=== PATIENT | female | born 1980 | race Caucasian/White ===

== ENCOUNTER 2019-05-16 20:26 | Observation (INO) ==
[2019-05-16] MEDS ORDERED: *HR* Metoprolol 5 MG/5 ML VIAL IVP ONE (21:17)
[2019-05-16 22:07] LABS: Basophils # 0.1 K/mcL (0.0-0.2); Basophils % 0.6 %; Eosinophils # 0.1 K/mcL (0.0-0.6); Hematocrit 43.9 % (35.3-44.9); Hemoglobin 15.8 g/dL (11.5-15.4); Immature Granulocytes % 0.2 % (0-4); Lymphocytes # 3.3 K/mcL (0.6-4.6); Lymphocytes % 27.7 %; Mean Corpuscular Hemoglobin 31.7 pg (28.0-33.3); Mean Corpuscular Volume 88.2 fL (83.0-100.0); Monocytes % 8.5 %; Neutrophils # 7.5 K/mcL (1.6-8.9); Platelet Count 365 K/mcL (140-400); Red Blood Count 4.98 M/mcL (3.82-4.97); Red Cell Distribution Width 12.7 % (11.5-14.5); White Blood Count 12.1 K/mcL (4.3-11.1)
[2019-05-16 22:33] LABS: BUN/Creatinine Ratio 17 (6-26); Blood Urea Nitrogen 12 mg/dL (6-20); Calcium 9.1 mg/dL (8.6-10.3); Carbon Dioxide 25 mEq/L (23-29); Chloride 102 mEq/L (98-107); Glucose 118 mg/dL (70-105); Osmolality,Calculated 289 (280-300); Potassium 3.7 mEq/L (3.5-5.1); Sodium 139 mEq/L (136-145); Troponin I 0.06 ng/mL (< 0.04); eGFR For African Americans > 60 (> 60); eGFR For Non-African Americans > 60 (> 60)
[2019-05-16] MEDS ORDERED: Aspirin 325 MG TABLET PO ONE (22:39)
[2019-05-16] MEDS ORDERED: Ondansetron 4 MG/2 ML VIAL IVP ONE (22:39)
[2019-05-16] MEDS ORDERED: hydrALAZINE 10 MG TABLET PO ONE (23:27)
[2019-05-16] MEDS ORDERED: niCARdipine 20 MG in 0.9 % Sodium Chloride 192 ML IVC SCH (23:30)
[2019-05-17 03:23] LABS: Amphetamine Screen,Urine Negative ng/mL (Cutoff=1000); Barbiturate Screen,Urine Negative ng/mL (Cutoff=200); Benzodiazepines Screen,Urine Negative ng/mL (Cutoff=200); Cannabinoid Screen,Urine Negative ng/mL (Cutoff = 50); Cocaine Screen,Urine Negative ng/mL (Cutoff= 300); Opiate Screen,Urine Negative ng/mL (Cutoff=300); Phencyclidine Screen,Urine Negative ng/mL (Cutoff=25)
[2019-05-17] MEDS ORDERED: Acetaminophen 325 MG TABLET PO PRN (07:16)
[2019-05-17] MEDS ORDERED: Naloxone 0.4 MG/ML INJ IVP PRN (07:16)
[2019-05-17] MEDS ORDERED: hydrALAZINE 25 MG TABLET PO SCH (08:00)
[2019-05-17 08:58] LABS: Chol/HDL Ratio 3.4 (0-4.9)
[2019-05-17] MEDS ORDERED: Aspirin Enteric Coated 81 MG Tablet PO SCH (09:00)
[2019-05-17] MEDS ORDERED: amLODIPine 5 MG TABLET PO SCH (09:38)
[2019-05-17] MEDS ORDERED: Ondansetron 4 MG/2 ML VIAL IVP PRN (09:45)
[2019-05-17 10:58] VITALS: BP 158/109
[2019-05-17] MEDS ORDERED: *HR* Heparin 5,000 UNIT/ML VIAL SQ SCH (14:00)
== END 2019-05-17 12:07 | disposition left against medical advice (07) ==
LOC: CDU 20:26 → EMEROOARM 20:26 → CDU 05-17 00:57
PROVIDERS: ADMIT Family Medicine; ATTEND Family Medicine

== ENCOUNTER 2019-07-02 01:29 | Observation (INO) ==
[2019-07-02 03:23] LABS: Basophils # 0.1 K/mcL (0.0-0.2); Basophils % 0.5 %; Eosinophils # 0.1 K/mcL (0.0-0.6); Eosinophils % 1.3 %; Hematocrit 42.5 % (35.3-44.9); Hemoglobin 14.3 g/dL (11.5-15.4); Immature Granulocytes % 0.3 % (0-4); Lymphocytes # 2.1 K/mcL (0.6-4.6); Lymphocytes % 22.6 %; Mean Corpuscular HGB Conc 33.6 g/dL (31.6-35.5); Mean Platelet Volume 9.2 fL (9.4-12.4); Monocytes # 0.7 K/mcL (0.0-1.3); Monocytes % 7.9 %; Neutrophils # 6.2 K/mcL (1.6-8.9); Platelet Count 342 K/mcL (140-400); Red Blood Count 4.62 M/mcL (3.82-4.97); Red Cell Distribution Width 12.3 % (11.5-14.5); Segmented Neutrophils % 67.4 %; White Blood Count 9.1 K/mcL (4.3-11.1)
[2019-07-02 03:31] LABS: INR 1.2; Prothrombin Time 13.2 Seconds (9.4-12.1)
[2019-07-02 03:34] LABS: Activated Partial Thrombo Time 31.7 Seconds (26.0-36.0)
[2019-07-02 03:46] LABS: BUN/Creatinine Ratio 15 (6-26); Blood Urea Nitrogen 11 mg/dL (6-20); Calcium 9.3 mg/dL (8.6-10.3); Carbon Dioxide 29 mEq/L (23-29); Chloride 102 mEq/L (98-107); Glucose 98 mg/dL (70-105); Osmolality,Calculated 283 (280-300); Potassium 3.8 mEq/L (3.5-5.1); Sodium 137 mEq/L (136-145); Troponin I < 0.03 ng/mL (< 0.04); eGFR For African Americans > 60 (> 60); eGFR For Non-African Americans > 60 (> 60)
[2019-07-02] MEDS: Nitroglycerin 0.4 MG TAB.SUBL SL SCH ×3 (04:01→10:54)
[2019-07-02] MEDS ORDERED: 0.9 % Sodium Chloride 1,000 ML IVC ONE (04:15)
[2019-07-02] MEDS ORDERED: Aspirin 325 MG TABLET PO ONE (06:14)
[2019-07-02 06:18] LABS: Bilirubin,Urine Small (Negative); Blood,Urine Negative (Negative); Clarity,Urine Cloudy (Clear); Color,Urine Dark Yellow (Yellow); Glucose,Urine (UA) Normal (Normal); Ketones,Urine Negative (Negative); Leukocyte Esterase,Urine Small (Negative); Nitrite,Urine Negative (Negative); Protein,Urine Trace mg/dL (Neg-Trace); Specific Gravity,Urine 1.026 (1.010-1.025); Urobilinogen,Urine Normal (Normal)
[2019-07-02 06:21] LABS: Bacteria,Urine Many per hpf (None-Few); Squamous Epithelial Cell,Urine Many per lpf (None-Few); WBC,Urine 15-30 per hpf (0-3)
[2019-07-02] MEDS ORDERED: niCARdipine 20 MG in 0.9 % Sodium Chloride 192 ML IVC SCH ×2 (06:30→11:00)
[2019-07-02 06:34] LABS: Hyaline Casts,Urine Few per lpf (None-Few)
[2019-07-02] MEDS ORDERED: niCARdipine 20 MG/200 ML MLS IVC ONE (06:52)
[2019-07-02] MEDS ORDERED: niCARdipine 20 MG/200 ML MLS IVC SCH (07:00)
[2019-07-02] MEDS ORDERED: Ondansetron 4 MG/2 ML VIAL IVP PRN (07:13)
[2019-07-02] MEDS ORDERED: Naloxone 0.4 MG/ML INJ IVP PRN (07:13)
[2019-07-02] MEDS ORDERED: hydrOXYzine pamoate 25 MG CAPSULE PO PRN ×2 (08:06→16:13)
[2019-07-02] MEDS ORDERED: Lisinopril 20 MG TABLET PO SCH (09:00)
[2019-07-02 09:56] LABS: Amphetamine Screen,Urine Positive ng/mL (Cutoff=1000); Barbiturate Screen,Urine Negative ng/mL (Cutoff=200); Benzodiazepines Screen,Urine Negative ng/mL (Cutoff=200); Cannabinoid Screen,Urine Negative ng/mL (Cutoff = 50); Cocaine Screen,Urine Negative ng/mL (Cutoff= 300); Opiate Screen,Urine Negative ng/mL (Cutoff=300); Phencyclidine Screen,Urine Negative ng/mL (Cutoff=25)
[2019-07-02] MEDS: cefTRIAXone 1,000 MG in 0.9 % Sodium Chloride Mini Bag 100 ML IVPB SCH (10:03)
[2019-07-02] MEDS: Lisinopril-HCTZ 20-12.5mg TABLET PO SCH (10:04)
[2019-07-02] MEDS ORDERED: Acetaminophen 325 MG TABLET PO PRN (10:13)
[2019-07-02] MEDS: Nicotine 21 MG PATCH.TD24 TD SCH (10:50)
[2019-07-02] MEDS ORDERED: Ketorolac 15 MG/ML VIAL IVP ONE (12:14)
[2019-07-02] MEDS ORDERED: Ketorolac 30 MG/ML VIAL IVP ONE (12:30)
[2019-07-02] MEDS ORDERED: *HR* Promethazine 25 MG/ML VIAL IVP PRN (13:16)
[2019-07-02] MEDS ORDERED: SUMAtriptan 6 MG/0.5 ML SQ ONE (13:16)
[2019-07-02] MEDS ORDERED: *HR* LORazepam 2 MG/ML VIAL IVP ONE (17:12)
[2019-07-02] MEDS: *HR* Heparin 5,000 UNIT/ML VIAL SQ SCH (19:14)
[2019-07-03 02:26] LABS: Basophils # 0.1 K/mcL (0.0-0.2); Basophils % 0.5 %; Eosinophils # 0.1 K/mcL (0.0-0.6); Eosinophils % 1.5 %; Hematocrit 43.7 % (35.3-44.9); Hemoglobin 14.8 g/dL (11.5-15.4); Immature Granulocytes % 0.3 % (0-4); Lymphocytes # 2.4 K/mcL (0.6-4.6); Lymphocytes % 26.1 %; Mean Corpuscular HGB Conc 33.9 g/dL (31.6-35.5); Mean Corpuscular Hemoglobin 31.4 pg (28.0-33.3); Mean Corpuscular Volume 92.8 fL (83.0-100.0); Mean Platelet Volume 9.7 fL (9.4-12.4); Monocytes # 0.8 K/mcL (0.0-1.3); Monocytes % 8.2 %; Neutrophils # 5.9 K/mcL (1.6-8.9); Platelet Count 327 K/mcL (140-400); Red Blood Count 4.71 M/mcL (3.82-4.97); Red Cell Distribution Width 12.4 % (11.5-14.5); Segmented Neutrophils % 63.4 %; White Blood Count 9.3 K/mcL (4.3-11.1)
[2019-07-03 02:41] LABS: BUN/Creatinine Ratio 17 (6-26); Blood Urea Nitrogen 16 mg/dL (6-20); Calcium 8.8 mg/dL (8.6-10.3); Carbon Dioxide 28 mEq/L (23-29); Chloride 103 mEq/L (98-107); Glucose 112 mg/dL (70-105); Osmolality,Calculated 288 (280-300); Potassium 3.6 mEq/L (3.5-5.1); Sodium 138 mEq/L (136-145); eGFR For African Americans > 60 (> 60); eGFR For Non-African Americans > 60 (> 60)
[2019-07-03] MEDS: *HR* Heparin 5,000 UNIT/ML VIAL SQ SCH (06:12)
[2019-07-03] MEDS: Lisinopril-HCTZ 20-12.5mg TABLET PO SCH (07:48)
[2019-07-03] MEDS: cefTRIAXone 1,000 MG in 0.9 % Sodium Chloride Mini Bag 100 ML IVPB SCH (07:49)
[2019-07-03] MEDS: Nicotine 21 MG PATCH.TD24 TD SCH (07:49)
[2019-07-03 08:10] VITALS: BP 131/94
[2019-07-03] MEDS ORDERED: amLODIPine 5 MG TABLET PO SCH (09:00)
== END 2019-07-03 11:22 | disposition home or self-care (01) ==
LOC: 2ANU 01:29 → EMEROOARM 01:29 → 2NNU 06:49
PROVIDERS: ADMIT Family Medicine; ATTEND Family Medicine